=== PATIENT | female | born 1980 | race Caucasian/White ===

== ENCOUNTER 2017-10-14 08:12 | Inpatient (IN) | payer BC, OTHER ==
[~2017-10-14] VITALS: Ht 172.7 cm; Wt 95.3 kg
[2017-10-14] MEDS ORDERED: MIRALAX 17 GM POWD.PACK PO PRN (12:45)
[2017-10-14] MEDS ORDERED: LOPERAMIDE HCL 2 MG CAPSULE PO PRN ×2 (12:45)
[2017-10-14] MEDS ORDERED: MAGNESIUM HYDROXIDE 30 ML LIQUID UDC PO PRN (12:45)
[2017-10-14] MEDS ORDERED: ACETAMINOPHEN 325 MG TABLET PO PRN (12:45)
[2017-10-14] MEDS ORDERED: DIAZEPAM 5 MG TABLET PO PRN (12:45)
[2017-10-14] MEDS ORDERED: ONDANSETRON ODT 4 MG TAB.RAPDIS SL PRN (12:45)
[2017-10-14] MEDS ORDERED: DICYCLOMINE HCL 20 MG TABLET PO PRN (12:45)
[2017-10-14] MEDS ORDERED: LORAZEPAM 2 MG/1 ML VIAL IM PRN (12:45)
[2017-10-14] MEDS ORDERED: DIAZEPAM 10 MG TABLET PO PRN ×2 (12:45)
[2017-10-14] MEDS ORDERED: ONDANSETRON 4 MG/2 ML VIAL IM PRN (12:45)
[2017-10-14] MEDS ORDERED: MAG HYDROX/AL HYDROX/SIMETH 30 ML LIQUID UDC PO PRN (12:45)
[2017-10-14] MEDS ORDERED: diphenhydrAMINE 50 MG CAPSULE PO PRN (12:45)
[2017-10-14] MEDS ORDERED: BUPRENORPHINE HCL 2 MG TAB.SUBL SL PRN (12:45)
--- NOTE | 2017-10-14 13:00 | NUR ---
Pre Admission Note Pt A&Ox4 able to communicate without any difficulty vitals taken all WNL, pt is not intoxicated and stated she has not been using for the past couple of days, pt is being admitted due to opiate and Barbiturates withdrawals, Pt is stable enough to be admitted on the unit.
[2017-10-14] MEDS ORDERED: CITA20TA19 PO (13:01)
[2017-10-14] MEDS ORDERED: LAMO200T2 PO (13:01)
[2017-10-14] MEDS ORDERED: ARMOUR THYROID PO (13:01)
[2017-10-14] MEDS ORDERED: LEVO25TA9 PO (13:01)
[2017-10-14] MEDS ORDERED: DULO60CA45 PO (13:01)
[2017-10-14] MEDS ORDERED: OMEP40CA37 PO (13:01)
[2017-10-14] MEDS ORDERED: MIRT30TA PO (13:01)
[2017-10-14] MEDS ORDERED: vitamin D2 PO (13:01)
[2017-10-14 13:22] LABS: *URINE HCG, QUAL NEGATIVE (NEGATIVE)
[2017-10-14 13:31] LABS: *AMPHETAMINE, URINE NEGATIVE (NEGATIVE); *BARBITURATE, URINE POSITIVE (NEGATIVE); *CANNABINOID, URINE NEGATIVE (NEGATIVE); *COCCAINE, URINE NEGATIVE (NEGATIVE); *OPIATE, URINE NEGATIVE (NEGATIVE); *PHENCYCLIDINE SCREEN,URINE NEGATIVE (NEGATIVE)
[2017-10-14] MEDS: BUPRENORPHINE HCL 2 MG TAB.SUBL SL SCH ×3 (13:40→20:19)
[2017-10-14] MEDS: PHENOBARBITAL 60 MG TABLET PO SCH ×3 (13:40→20:18)
--- NOTE | 2017-10-14 14:00 | NUR ---
INITIAL SCORES CIWA: 17 COWS:17
--- NOTE | 2017-10-14 14:00 | NUR ---
Admission Note: Pt is a 37 year old F, admitted to [facility] at 1320 for TANIKA. and OPIATE withdrawal. Pt shows no signs or symptoms of intoxication and is experiencing moderate withdrawal symptoms. Pt appears disheveled and anxious unable to sit in one spot, constantly moving, biting fingernails during assessment. Pt is soft-spoken and has a depressed mood. Pt is AOx4. Pt states her withdrawal symptoms include paranoia, anxiety, agitation, sweats, tremors, nausea, and depressed mood. Pt denies Hx of withdrawal-induced seizures. Is able to communicate without difficulties. Substance use history: 1.Hydrocodone 10/325mg tab: Pt states that she takes 35 tabs (350mg) daily for the past 6 years, she first began to take them 8 years ago. Pts last consumption was on 10/12/17 she states she took 25 tabs (250mg) 2.Fioricet 50mg pill: : Pt states that she takes 20 pills (1,000mg) daily for the past 4 years, she first began to take them 4 years ago. Pts last consumption was on 10/11/17 she states she took 20 pills (1,000mg) Pt states she is seeking treatment because she is trying to get her life back on track and take control of her life. Pt has not been to any other treatment centers prior to this so this will be her first detox. Pts longest period of sobriety was 3 years which was from 2002 to 2005. Pt states she is motivated and is ready to change her life. BP: 137/78, HR:87, T: 98.5, RR: 18, SpO2: 98%, Pain: 0/10. Pulse regular. Respirations even and unlabored. Lung sounds clear bilaterally. Bowel sounds active x4 quadrants. Skin intact, but she does have pick wharton on both of her legs, no infection suspected, pt stated she starts to pick at her skin when she begins to start withdrawing. Pt is 210lbs, and 58. Pt follows regular diet at home. She states that she is allergic to Septra, Sulfa, Doxycycline, Topamax, codeine, and tetanus. Pt states she has a primary care physician by the name of Dr. Salazar. Pt reports having medical HX: of Depression, Anxiety, RLS, GERD, Bipolar disorder, and Fibromyalgia. Pt brought home medications which were reconciled and placed in the system. Pt also reported having surgical procedures for her thyroid and gallbladder. Pt states she smokes socially and only when she drinks, other than that I dont like to smoke at all. Pt denies any suicidal Homicidal ideations at this time. Pt states she lives with her family in a mobile home. She is not currently employed. She reports that the majority of her family are addicted to drugs, it would be easier to name the family members who dont use drugs. All information given to MD, Plan of care made pt placed on a 5 day Phenobarbital and 5 day Subutex Taper to start today. All admission forms completed, patient education given to patient and signed. Pt oriented around the unit, taken to her room, Bed in lowest position. Side rails up x2. Bed padded for safety. All needs attended and met. Call light functioning and within reach. Will continue to monitor.
[2017-10-14] MEDS ORDERED: PATIENT MAY USE OWN MED- MD OK PO SCH (15:00)
[2017-10-14 16:00] VITALS: BP 129/88
[2017-10-14] MEDS: GABAPENTIN 400 MG CAPSULE PO SCH ×2 (16:23→20:18)
[2017-10-14 17:21] LABS: EOSINOPHILS # (AUTO) 0.1 K/uL (0.0-0.7); HEMATOCRIT 34.1 % (31.2-41.9); HEMOGLOBIN 11.2 g/dL (10.9-14.3); LYMPHOCYTES # (AUTO) 1.4 K/uL (20.0-40.0); LYMPHOCYTES % (AUTO) 29.9 % (20.5-51.5); MEAN CORPUSCULAR HGB CONC 33 g/dL (32.3-35.6); MEAN CORPUSCULAR VOLUME 85.4 fL (75.5-95.3); MONOCYTES # (AUTO) 0.3 K/uL (2.0-10.0); MONOCYTES % (AUTO) 5.8 % (0.0-11.0); NEUTROPHILS # (AUTO) 2.9 K/uL (1.8-8.9); NEUTROPHILS % (AUTO) 61.3 % (38.5-71.5); PLATELET COUNT (AUTO) 178 K/uL (179-408); WHITE BLOOD COUNT (AUTO) 4.8 K/uL (3.8-11.8)
[2017-10-14 17:38] LABS: ETHANOL < 3 MG/DL (0-0)
[2017-10-14 17:41] LABS: ALANINE AMINOTRANSFERASE 49 U/L (14-59); ALKALINE PHOSPHATASE 79 U/L (50-136); ASPARTATE AMINOTRANSFERASE 14 U/L (15-37); BILIRUBIN,TOTAL 0.2 mg/dL (0.2-1.0); CARBON DIOXIDE 28 mmol/L (21-32); CHLORIDE 102 mmol/L (98-107); CREATININE 0.7 mg/dL (0.6-1.3); GLUCOSE 138 mg/dL (74-106); MAGNESIUM 1.8 mg/dL (1.8-2.4); POTASSIUM 3.9 mmol/L (3.5-5.1); TOTAL PROTEIN, SERUM 7.3 g/dL (6.4-8.2); UREA NITROGEN, BLOOD 8 mg/dL (7-18)
[2017-10-14 18:16] LABS: THYROID STIMULATING HORMONE 1.595 mIU/mL (0.358-3.740)
--- NOTE | 2017-10-14 19:16 | NUR ---
End of Shift Report given to slot shift supervisor nurse, Plan of care followed, Vital signs monitored closely Q4H. Withdrawals symptoms were closely monitored, medications given as schedule. Initial CIWA 17 COWS 17. Pt encouraged adequate PO fluid intake as tolerated. Pt presented with sweats flushed face hallucinations anxiety and tremors during the day. Pt received all of the scheduled medications Pt did not receive any PRN medications. Last CIWA 14 COWS 14. Pt reported that the phenobarb and Subutex have been working well at controlling the withdrawal symptoms. Pt ate all of the meals. Pt attended all the groups and activities to learn new coping skills to prevent relapse. Pt denies any SI/HI. All safety measures in place, bed in lowest locked position, call light within reach. All needs met and attended.
--- NOTE | 2017-10-14 19:30 | NUR ---
START OF SHIFT Received 37 year old female patient admitted on 10/14/17 for Hydrocodone and Fioricet withdrawal. Pt is alert and oriented x4. Pt noted with anxiety, restlessness, irritability, body aches, mild nausea, and sweats. She is receiving a 5 day Phenobarbital taper and tolerating well. She did not receive or request PRN medications. Breathing is even and unlabored, safety measures in place. Will continue to monitor.
[2017-10-14 20:00] VITALS: BP 123/91
[2017-10-14 23:35] VITALS: BP 110/81
[2017-10-14] MEDS: IBUPROFEN 600 MG TABLET PO PRN (23:36)
--- NOTE | 2017-10-14 23:36 | NUR ---
PRN VALIUM, IBUPROFEN Pt complains of restlessness, anxiety, agitation, and headache 11/03. PRN Ibuprofen and Valium 10 mg administered for CIWA:15. Safety measures in place. Will monitor effectiveness.
--- NOTE | 2017-10-15 00:36 | NUR ---
PRN REASSESSMENT PRN medications effective. Pt is lying in bed with eyes closed and is asleep. No facial grimacing noted. Breathing is even and unlabored, safety measures in place. Will continue to monitor.
[2017-10-15] MEDS: METHOCARBAMOL 750 MG TABLET PO PRN ×2 (02:35→20:51)
--- NOTE | 2017-10-15 02:35 | NUR ---
PRN SUBUTEX/ROBAXIN Pt complains of body aches, agitation, restless legs, stuffy nose, watery eyes, chills and sweats. COWS: 14. PRN Robaxin and Subutex administered as ordered. Safety measures in place. Will continue to monitor effectiveness.
--- NOTE | 2017-10-15 03:35 | NUR ---
PRN SUBUTEX/ROBAXIN REASSESSMENT PRN medications effective. Pt is lying in bed with eyes closed noted to be asleep. No facial grimacing. Breathing is even and unlabored, safety measures in place. Will monitor.
[2017-10-15 04:00] VITALS: BP 115/85
[2017-10-15] MEDS: LEVOTHYROXINE 25MCG PO SCH (07:05)
--- NOTE | 2017-10-15 07:17 | NUR ---
END OF SHIFT Pt is a 37 year old female patient admitted on 10/14/17 for Hydrocodone and Fioricet withdrawal. He remains alert and oriented x4. Pt was noted with anxiety, restlessness, irritability, body aches, mild nausea, chills and sweats during the shift. She is receiving a 4 day Phenobarbital and 4 day Subutex taper and tolerating well. At 2336 she received PRN Valium and Ibuprofen. At 0235 she received PRN Subutex and Robaxin. She slept a total of 3 hrs, Intake: 1,000mL, Void: x3, BM:0, COWS:14, CIWA:14 at 0230. Breathing is even and unlabored, safety measures in place. Endorsed to AM shift.
--- NOTE | 2017-10-15 07:37 | NUR ---
BEGINNING OF SHIFT Patient endorsement report received from manager shift nurse, all pertinent information discussed. Patient is a 37 year old Female with admitting Dx: Opiate/Barbiturate withdrawal. Patient is scheduled to begin day 1 of 4 day phenobarbital taper, and day one of 4 day Subutex taper. Patient received PRN:Valium, Motrin, Subutex and Robaxin. , per manager shift medications were effective. patient slept for 3 hours. fall and seizure precautions in place and observed at all times. Patient received in bed with eyes closed, respirations are even and unlabored, patient sound asleep, but arousable to verbal stimuli. Will educate patient regarding plan of care for the day, and medication regimen, Patient with last ciwa score of 14, and last cow score of: 14. will continue to monitor closely. safety measures in place.
[2017-10-15 08:55] VITALS: BP 107/69
[2017-10-15] MEDS ORDERED: ERGOCALCIFEROL 50000 UNIT PO SCH (09:00)
[2017-10-15] MEDS ORDERED: TUBERCULIN,PURIF.PROT.DERIV. 5 TU/0.1 ML TEST ID ONE (09:00)
[2017-10-15] MEDS: GABAPENTIN 400 MG CAPSULE PO SCH ×3 (09:16→20:51)
[2017-10-15] MEDS: BUPRENORPHINE HCL 2 MG TAB.SUBL SL SCH ×3 (09:16→20:51)
[2017-10-15] MEDS: PHENOBARBITAL 60 MG TABLET PO SCH ×3 (09:16→20:51)
[2017-10-15] MEDS: DULOXETINE 60 MG CAPSULE.DR PO SCH (13:22)
[2017-10-15] MEDS: CITALOPRAM 20 MG TABLET PO SCH (13:22)
[2017-10-15 13:32] VITALS: BP 114/78
--- NOTE | 2017-10-15 15:42 | NUR ---
Client was prompted to attend group counseling sessions and client agreed to do so.
[2017-10-15 16:50] VITALS: BP 112/77
--- NOTE | 2017-10-15 19:03 | NUR ---
END OF SHIFT Patient monitored closely during shift. Patient alert and oriented x4. Admitting Dx: Opiate/BZO withdrawal. Patient continues on 4 day Phenobarbital taper and 4 day Subutex taper as ordered, well tolerated, patient currently on day 1 of taper. Patient presented with: difficulty sitting still, flushed, enlarged pupils, bone and joint aches, nasal congestion, abdominal cramps, tremors, yawning, anxiety, irritability, gooseflesh, itchiness sensation and head fullness. Initial cow score of: 16 and ciwa score of: 20. Patient with last cow score of: 15, and ciwa score of: 15. Detox medication effective at reducing withdrawal symptoms. Dr. montes was notified of ciwa scores at or above 15. Patient received no PRN medications during shift. Patient received PPD to left F/A well tolerated. Patient noted disheveled, has a flat affect with anxious and depressed mood. Patient encouraged participation in therapy sessions, noted attending and participating. patient denies any SI/HI, Patient was encouraged to verbalize feelings, encouraged to develop coping skills and utilization of non pharmacological interventions. Encouraged patient to increase PO fluid intake as tolerated. Patients safety measures are in place. call light kept within reach, will continue to monitor. Endorsed to staff nurse, all pertinent information discussed.
--- NOTE | 2017-10-15 19:15 | NUR ---
Start of Shift Note: Patient is a 37 y.o female admitted on 10/14/17 for medically supervised withdrawal from Fioricet and Hydrocodone use. She is alert & oriented x4. Patient presented with anxiety, agitation, diaphoresis, fine tremors, runny nose, teary eyes, 8/10 back pain & 5/10 headache. She denies any hallucinations. Patient is on 5-day Phenobarbital & 5-day Subutex taper and tolerating well. No PRN medications received during day shift. Last COWS 15 CIWA 15. Encourage pt to increase fluid intake for hydration. Continue to encourage pt to participate in group therapy to prevent relapse. Educated patient of current plan of care for the night and medication regimen. Safety precaution in place. Bed locked in lowest position. Both side rails up. Call light within pt's reach. Will continue to monitor patient.
[2017-10-15 20:00] VITALS: BP 115/70
[2017-10-15] MEDS: LAMOTRIGINE 200 MG TABLET PO SCH (20:51)
[2017-10-15] MEDS: IBUPROFEN 600 MG TABLET PO PRN (20:51)
[2017-10-15] MEDS: CLONIDINE HCL 0.1 MG TABLET PO SCH (20:51)
--- NOTE | 2017-10-15 20:51 | NUR ---
PRN Motrin & Robaxin Patient complained of 8/10 generalized body aches and 5/10 headache. Pt appears restless & anxious in bed with facial grimacing noted. Non-pharmacological intervention provided but ineffective. PRN Robaxin & Motrin administered as ordered. Will continue to monitor patient.
--- NOTE | 2017-10-15 21:51 | NUR ---
PRN Reassessment Patient verbalized effectiveness of medication. Pt reported decreased in body aches from 8/10 to 5/10. & reports relief from headache after 1 hour of medication administration. safety measures in place. Will continue to monitor patient.
[2017-10-16 04:00] VITALS: BP 112/68
[2017-10-16] MEDS: METHOCARBAMOL 750 MG TABLET PO PRN ×3 (04:58→20:06)
[2017-10-16] MEDS: CLONIDINE HCL 0.1 MG TABLET PO PRN ×2 (04:58→22:31)
--- NOTE | 2017-10-16 04:58 | NUR ---
PRN Clonidine & Robaxin Patient woke up in bed and complained of diaphoresis, chills, & 6/10 shoulder and neck pain. B/P 112/68, MD 75 noted. PRN Clonidine & Robaxin administered as ordered. Will monitor for effectiveness of medications.
--- NOTE | 2017-10-16 05:58 | NUR ---
PRN Reassessment Patient verbalized decreased in sweating & chills & some relief body aches from 10/04 to 08/04. Patient awake at this time and watching TV. No facial grimacing noted. Safety precautions are in place. Will continue to monitor.
[2017-10-16] MEDS: LEVOTHYROXINE 25MCG PO SCH (06:46)
--- NOTE | 2017-10-16 07:19 | NUR ---
End of Shift Note: Patient is a 37 y.o female admitted on 10/14/17 for medically supervised withdrawal from Fioricet and Hydrocodone use. Pt remains alert & oriented x4. She remained in her room throughout the shift. She presented with anxiety, agitation, fine tremors, runny nose, teary eyes, back pain, headache & she is visibly diaphoretic. She denies any hallucinations. Pt continues on her Phenobarbital & Subutex taper and tolerating well. Last COWS 11 CIWA 11. She received PRN Robaxin 2x for body aches, Motrin for headache & Clonidine for sweating & chills and were effective. Continue to closely monitor patient. Vitals noted WNL and will be closely monitored. She was able to sleep for a total of 7 hours. Fluid intake: 1220 ml, Voided 3x with no bowel movement. Continue to encourage pt to participate in group therapy and to increase fluid intake as tolerated. All needs attended & met. Safety measures in place. Will endorse pt to day shift nurse.
--- NOTE | 2017-10-16 07:31 | NUR ---
BEGINNING OF SHIFT Patient endorsement report received from punch molder nurse, all pertinent information discussed. Patient is a 37 year old Female with admitting Dx: Opiate/Barbiturate withdrawal. Patient is scheduled to begin day 2 of 4 day phenobarbital taper, and day 2 of 4 day Subutex taper. Patient received PRN:Robaxin,Motrin, Clonidine, per punch molder medications were effective. patient slept for 7 hours. fall and seizure precautions in place and observed at all times. Patient received in bed with eyes closed, respirations are even and unlabored, patient sound asleep, but arousable to verbal stimuli. Will educate patient regarding plan of care for the day, and medication regimen, Patient with last ciwa score of 11, and last cow score of: 11. will continue to monitor closely. safety measures in place.
[2017-10-16 07:46] LABS: BASOPHILS % (AUTO) 1.1 % (0.0-2.0); EOSINOPHILS # (AUTO) 0.1 K/uL (0.0-0.7); EOSINOPHILS % (AUTO) 1.7 % (0.0-7.0); HEMATOCRIT 35.5 % (31.2-41.9); HEMOGLOBIN 11.8 g/dL (10.9-14.3); LYMPHOCYTES # (AUTO) 2.1 K/uL (20.0-40.0); LYMPHOCYTES % (AUTO) 47.4 % (20.5-51.5); MEAN CORPUSCULAR HEMOGLOBIN 28.6 uug (24.7-32.8); MEAN CORPUSCULAR HGB CONC 33 g/dL (32.3-35.6); MEAN CORPUSCULAR VOLUME 85.9 fL (75.5-95.3); MONOCYTES # (AUTO) 0.3 K/uL (2.0-10.0); MONOCYTES % (AUTO) 7.1 % (0.0-11.0); NEUTROPHILS # (AUTO) 1.9 K/uL (1.8-8.9); NEUTROPHILS % (AUTO) 42.7 % (38.5-71.5); PLATELET COUNT (AUTO) 187 K/uL (179-408); RED BLOOD CELL COUNT(AUTO) 4.13 MIL/uL (3.63-4.92); WHITE BLOOD COUNT (AUTO) 4.5 K/uL (3.8-11.8)
[2017-10-16 08:15] LABS: CREATININE 0.7 mg/dL (0.6-1.3); MAGNESIUM 1.8 mg/dL (1.8-2.4)
[2017-10-16 08:42] VITALS: BP 115/82
[2017-10-16] MEDS: CLONIDINE HCL 0.1 MG TABLET PO SCH (08:49)
[2017-10-16] MEDS: DULOXETINE 60 MG CAPSULE.DR PO SCH (08:49)
[2017-10-16] MEDS: GABAPENTIN 400 MG CAPSULE PO SCH ×3 (08:49→20:07)
[2017-10-16] MEDS: CITALOPRAM 20 MG TABLET PO SCH (08:50)
[2017-10-16] MEDS: PHENOBARBITAL 60 MG TABLET PO SCH ×2 (08:50→12:47)
--- NOTE | 2017-10-16 08:50 | NUR ---
PRN ROBAXIN Patient c/o muscle aches 10/04, provided with non pharmacological interventions with no relief, administered Robaxin as ordered, will monitor effectiveness of medication.
[2017-10-16] MEDS ORDERED: BUPRENORPHINE HCL 2 MG TAB.SUBL SL SCH (09:00)
--- NOTE | 2017-10-16 09:50 | NUR ---
ROBAXIN REASSESSMENT Patient reports medication effective decrease in muscle aches. current pain level 3/10, tolerable as per patient, will continue to monitor.
[2017-10-16 12:11] LABS: HEPATITIS B SURFACE AG Negative (Negative)
[2017-10-16 12:45] VITALS: BP 102/60
[2017-10-16] MEDS: LIDOCAINE 5% PATCH TD SCH (12:51)
[2017-10-16] MEDS ORDERED: BACLOFEN 10 MG TABLET PO SCH ×2 (13:00→21:00)
[2017-10-16] MEDS: BUPRENORPHINE HCL 2 MG TAB.SUBL SL SCH ×2 (14:06→20:06)
[2017-10-16 16:51] VITALS: BP 112/68
[2017-10-16] MEDS ORDERED: PHENOBARBITAL 60 MG TABLET PO SCH ×2 (17:00→21:00)
[2017-10-16] MEDS: KETOROLAC TROMETHAMINE 30 MG INJ IM PRN (17:34)
--- NOTE | 2017-10-16 18:34 | NUR ---
TORADOL REASSESSMENT Patient reports medication effective, current pain level 3/10, tolerable pain level as per patient will continue to monitor.
--- NOTE | 2017-10-16 19:07 | NUR ---
END OF SHIFT Patient with admitting Dx: Opiate/BZO withdrawal. Patient noted with depressed mood, flat affect, disheveled, and anxious at times. Monitored closely during shift. Patient alert and oriented x4, during shift. Patient continues on a four day Phenobarbital and four day Subutex taper as ordered, currently on day 2 of taper. Patient preferred to stay in room, and rest, encouraged patient to attend group therapies/sessions to learn new coping skills to prevent relapse. During shift patient presented with: difficulty sitting still, bone and joint aches, tremors, flushed, clammy skin, abdominal cramps, yawning, anxiety, gooseflesh. Initial cow score of: 17, and ciwa score of: 14, last cow score of: 16 and ciwa score of: 14. Encouraged adequate PO fluid intake as tolerated. Received PRN: Robaxin, and toradol inj during shift , medications were effective one hour post administration. Safety measures are in place. Call light kept with in reach. Patient endorsed to retail shift leader nurse, all pertinent information was discussed.
--- NOTE | 2017-10-16 19:08 | NUR ---
PRN TORADOL Patient c/o 12/04 generalized body pain, noted guarding and with facial grimacing. patient provided with non pharmacological interventions with no relief, administered Toradol injection as ordered. will monitor effectiveness of medication. Addendum: 10/16/17 at 1909 by GAUDENCIO EMERSON LVN medication administered at 1734
--- NOTE | 2017-10-16 19:15 | NUR ---
Start of Shift Note: Endorsement received from day shift nurse. Receive patient in bed and appears with a flushed face, anxious and irritable mood. She presented with anxiety, agitation, restlessness, diaphoresis, chills, fine tremors, runny nose, teary eyes & reports 7/10 body aches. She denies any hallucinations at this time. Patient continues on a 5-day Phenobarbital & 5-day Subutex taper and tolerating well. Pt received PRN Toradol & Robaxin during day shift and was effective per report. Last COWS 16 CIWA 14. Encourage pt to increase fluid intake for hydration. Pt attended some groups today. Willcontinue to encourage pt to participate in group therapy to prevent relapse. Educated patient of current plan of care for the night and medication regimen. Safety precaution in place. Bed locked in lowest position. Both side rails up. Call light within pt's reach. Will continue to monitor patient.
[2017-10-16 20:00] VITALS: BP 117/68
--- NOTE | 2017-10-16 20:06 | NUR ---
PRN Robaxin Patient complained of 6/ generalized body aches & anxiety. Patient appears restless and anxious in bed. PRN Robaxin administered as ordered. Will continue to monitor patient. Addendum: 10/16/17 at 2035 by NAYA DAWSON RN Addendum: Pt also given PRN Vistaril for anxiety at this time. Safety measures in place.
[2017-10-16] MEDS: LAMOTRIGINE 200 MG TABLET PO SCH (20:07)
[2017-10-16] MEDS: HYDROXYZINE PAMOATE 25 MG CAPSULE PO PRN (20:07)
[2017-10-16] MEDS ORDERED: CLONIDINE HCL 0.1 MG TABLET PO SCH (21:00)
--- NOTE | 2017-10-16 21:06 | NUR ---
PRN Reassessment Pt verbalized some relief from body aches 1 hour of medication administration. Pt noted with a pain of 4/10 at this time. Pt in bed watching TV. Safety measures in place. Will continue to monitor patient.
[2017-10-16] MEDS: MIRTAZAPINE 15 MG TABLET PO PRN (22:26)
[2017-10-16 22:30] VITALS: BP 116/91
--- NOTE | 2017-10-16 22:31 | NUR ---
PRN Clonidine & Remeron Patient c/o of inability to fall sleep d/t complaints of diaphoresis, chills & anxiety. B/P 116/91, WI 101 noted at this time. PRN Clonidine & Remeron administered as ordered. Will monitor for effectiveness of medication.
--- NOTE | 2017-10-16 23:31 | NUR ---
PRN Reassessment Pt asleep in bed at this time. Pt appears calm & comfortable. No facial grimacing noted. Safety measures in place. Will continue to monitor patient.
[2017-10-17] MEDS: THYROID 60 MG TABLET PO SCH (06:48)
[2017-10-17] MEDS: LEVOTHYROXINE 25MCG PO SCH (06:48)
[2017-10-17 07:06] LABS: VIT D, 25-HYDROXY 18.8 ng/mL (30.0-100.0)
--- NOTE | 2017-10-17 07:22 | NUR ---
End of Shift Note: Continue to closely monitor patient. She remains alert & oriented x4. During my shift, she presented with anxiety, agitation, restlessness, diaphoresis, chills, fine tremors, runny nose, teary eyes & myalgia. Pt continues on her Subutex & Phenobarbital taper and tolerating well. Last COWS 11 CIWA 11. She received PRN Robaxin for pain, Vistaril for anxiety, Clonidine for sweating & chills & Remeron for sleep and were effective. Pt verbalized taper medications to be effective in decreasing symptoms of withdrawal. Pt stable at this time and vitals noted WNL. Continue to encourage pt to participate in group therapy to learn new coping skills and to prevent relapse. She was able to sleep for a total of 7 hours. Fluid intake: 1065 ml, Voided 3x with no bowel movement. All needs attended & met. Safety measures in place. Will endorse pt to day shift nurse.
--- NOTE | 2017-10-17 07:30 | NUR ---
START OF SHIFT Pt 37 y/o female admitted for opiate/ benzo withdrawal. Pt received in room on bed with eyes closed resting, but easily arousable to name. Perrla. Skin warm and moist to touch. Respirations even and unlabored. Bilateral hand tremors noted. Pt anxious and restless this morning. Pressured speech noted. Pt with poor eye contact. Pt appears disheveled with hair uncombed. Empty drink bottles scattered throughout the room. Encouraged to maintain hygiene. It was reported that pt slept for 7 hours last night. Last reported cows=11 ciwa=11@2300. pt is on a 5 day phenobarbital taper and is on day 4. Pt also on a 5 day subutex taper and is on day 4. it was reported that pt received robaxin for body aches and catapres for anxiety last night. Bed on lowest position with side rails x 2 up for safety. Call light within reach.
[2017-10-17 08:00] VITALS: BP 111/71
[2017-10-17 08:06] LABS: *ANTI-SCLERODERMA-70 AB <0.2 AI (0.0-0.9); *SJOGREN'S ANTI-SS-A <0.2 AI (0.0-0.9); *SJOGREN'S ANTI-SS-B <0.2 AI (0.0-0.9); *SMITH ANTIBODIES <0.2 AI (0.0-0.9); ANTI-DNA(DS) AB, QN 1 IU/mL (0-9)
[2017-10-17] MEDS ORDERED: DIAZEPAM 10 MG TABLET PO PRN (08:45)
[2017-10-17] MEDS ORDERED: DIAZEPAM 5 MG TABLET PO PRN (08:45)
[2017-10-17] MEDS ORDERED: ASPIRIN/ACETAMINOPHEN/CAFFEINE TABLET PO PRN (08:45)
[2017-10-17] MEDS: BUPRENORPHINE HCL 2 MG TAB.SUBL SL SCH ×3 (08:58→20:15)
[2017-10-17] MEDS: GABAPENTIN 400 MG CAPSULE PO SCH ×3 (08:58→20:15)
[2017-10-17] MEDS: PHENOBARBITAL 60 MG TABLET PO SCH ×3 (08:59→20:15)
[2017-10-17] MEDS: DULOXETINE 60 MG CAPSULE.DR PO SCH (08:59)
[2017-10-17] MEDS: METHOCARBAMOL 750 MG TABLET PO PRN (08:59)
[2017-10-17] MEDS: CLONIDINE HCL 0.1 MG TABLET PO SCH ×2 (08:59→14:07)
[2017-10-17] MEDS: BACLOFEN 10 MG TABLET PO SCH ×3 (08:59→20:16)
[2017-10-17] MEDS: CITALOPRAM 20 MG TABLET PO SCH (08:59)
[2017-10-17] MEDS ORDERED: CHOLECALCIFEROL 1,000 UNIT TABLET PO SCH (09:00)
[2017-10-17] MEDS: LIDOCAINE 5% PATCH TD SCH (09:00)
--- NOTE | 2017-10-17 09:09 | NUR ---
PRN ROBAXIN / TYLENOL pt state has generalized body pain 7/10. Pt irritable, observed with adls. Pt also with c/o body aches 7/10. Robaxin and tylenol po prn prer MD order given and tolerated well.
--- NOTE | 2017-10-17 10:09 | NUR ---
PRN EVAL ROBAXIN / TYLENOL Pt states generalized body pain 3/10. Pt also states body aches 3/10.
[2017-10-17 12:00] VITALS: BP 127/77
[2017-10-17] MEDS: DIAZEPAM 10 MG TABLET PO PRN ×2 (12:22→19:29)
[2017-10-17] MEDS: KETOROLAC TROMETHAMINE 30 MG INJ IM PRN ×2 (12:25→20:16)
--- NOTE | 2017-10-17 12:29 | NUR ---
PRN TORADOL AND VALIUM Pt restless and agitated. Pt with bilateral hand tremors noted. Valium 10 mg po prn per MD order given and tolerated well. Pt also with c/o body pain 11/03. toradol IM prn per MD order given and tolerated well. Addendum: 10/17/17 at 1543 by JULIA TAM RN additional ciwa=11
--- NOTE | 2017-10-17 13:29 | NUR ---
PRN VALIUM/TORADOL EVAL Pt with ciwa=7. Pt observed sitting on chair in room watching television. Pt states pain 4/10.
[2017-10-17 14:38] LABS: *BILIRUBIN,URIN NEGATIVE (NEGATIVE); *BLOOD, URINE NEGATIVE (NEGATIVE); *CLARITY,URINE SLIGHTLY CLOUDY (CLEAR); *COLOR,URINE YELLOW (YELLOW); *KETONES,URINE NEGATIVE (NEGATIVE); *PROTEIN,URINE NEGATIVE (NEGATIVE); *UROBILINOGEN,URINE 0.2 E.U./dl (NORMAL); LEUKOCYTE ESTERASE ,URINE NEGATIVE (NEGATIVE); NITRITE, URINE NEGATIVE (NEGATIVE); PH,URINE 5.5 (5.0-8.0); UGLUCOSE NEGATIVE (NEGATIVE)
[2017-10-17 14:57] LABS: BACTERIA,URINE NONE SEEN /HPF (NONE SEEN); RBC,URINE 0-3 /HPF (0-3); SQUAMOUS EPITHELIAL CELL,UR FEW /HPF (NONE SEEN); WBC,URINE 0-3 /HPF (0-3)
[2017-10-17 16:00] VITALS: BP 119/76
--- NOTE | 2017-10-17 18:49 | NUR ---
END OF SHIFT Pt 37 y/o female admitted for opiate/ benzo withdrawal. Pt alert and oriented to name, place, and time. Perrla. Skin warm and moist to touch. Respirations even and unlabored. Bilateral hand tremors noted. Pt appear disheveled. Clothes and empty drink bottles scattered throughout the room. Encouraged to maintain hygiene. Pt with periods of anxiety this morning. Pt also with periods of irritability this morning. Pt observed mostly in room today. Pt attended group activity. Pt was seen by MD today. Pt medication compliant and tolerated well. No ASE noted. Pt is on a 5 day subutex taper and is on day 4. Pt also on a 5 day Phenobarbital taper and is on day 4. Pt received valium prn per MD order was given for ciwa=11. Pt also received toradol im prn per MD order for c/o pain. Last cows=11 ciwa=10@1600. Bed on lowest position with side rails x2 up for safety. Call light within reach.
--- NOTE | 2017-10-17 19:15 | NUR ---
Start of Shift Note: Endorsement received from day shift nurse. Receive patient in bed and appears with a flushed face, diaphoretic, anxious and irritable. She c/o of 8/10 myalgia & 5/10 headache at this time. She continues to have fine tremors, stuffy nose & chills. She denies any hallucinations at this time. Patient continues on a 5-day Phenobarbital & 5-day Subutex taper and tolerating well. Pt received PRN Valium, Toradol, Tylenol & Robaxin during day shift and was effective per report. Last CIWA 10. Encourage pt to increase fluid intake for hydration. Educated patient of current plan of care for the night and medication regimen. Safety precaution in place. Bed locked in lowest position. Both side rails up. Call light within pt's reach. Will continue to monitor patient.
--- NOTE | 2017-10-17 19:29 | NUR ---
PRN Valium/Toradol Patient presents with anxiety, agitation, fine tremors, sweating, 8/10 generalized body aches and moderate headache. CIWA=15 noted. PRN Valium & Toradol administered as ordered. Will monitor for effectiveness of medication.
[2017-10-17 20:00] VITALS: BP 116/81
[2017-10-17] MEDS: LAMOTRIGINE 200 MG TABLET PO SCH (20:15)
[2017-10-17] MEDS: CLONIDINE HCL 0.2 MG TABLET PO SCH (20:16)
--- NOTE | 2017-10-17 20:29 | NUR ---
PRN Reassessment PRN medication effective. Pt verbalized decreased in anxiety & agitation. Pt's pain decreased from 8/10 to 4/10 after 1 hour of medication administration. CIWA 10 at this time. SAfety measures in place. Will continue to monitor patient.
[2017-10-17] MEDS: CLONIDINE HCL 0.1 MG TABLET PO PRN (22:50)
[2017-10-17] MEDS: HYDROXYZINE PAMOATE 25 MG CAPSULE PO PRN (22:50)
--- NOTE | 2017-10-17 22:50 | NUR ---
PRN Clonidine & Vistaril Patient is diaphoretic, anxious, irritable & restless. B/P 98/65 noted. PRN Clonidine & Vistaril administered as ordered. Will monitor for effectiveness of medication.
--- NOTE | 2017-10-17 23:50 | NUR ---
PRN Reassessment Patient stil awake at this time. Pt verbalized medication to be somewhat effective. Decreased in sweating, anxiety & agitation noted at this time. Pt in bed and watching TV at this time. Safety measures in place. Will continue to monitor patient.
[2017-10-18] VITALS: BP 98/65
[2017-10-18] MEDS: DIAZEPAM 10 MG TABLET PO PRN (00:26)
--- NOTE | 2017-10-18 00:26 | NUR ---
PRN Valium Patient woke up drenched in sweat. She presents with anxiety, agitation, headache & fine tremors. CIWA 12 noted at this time. PRN Valium 10mg administered as ordered. Will monitor for effectiveness of medication.
--- NOTE | 2017-10-18 01:26 | NUR ---
PRN Reassessment Patient asleep in bed at this time and appears calm & comfortable. No facial grimacing noted. Unable to reassess CIWA at this time. Safety measures in place. will continue to monitor patient.
[2017-10-18] MEDS: LEVOTHYROXINE 25MCG PO SCH (06:46)
[2017-10-18] MEDS: THYROID 60 MG TABLET PO SCH (06:46)
--- NOTE | 2017-10-18 07:19 | NUR ---
End of Shift Note: Continue to closely monitor patient. She remains alert & oriented x4. Pt continues on her Subutex & Phenobarbital taper and tolerating well. Last COWS 11 CIWA 11. She received PRN Valium 2x for increased CIWA scores, Clonidine for sweating, Vistaril for anxiety & Toradol for pain. All PRN medications given were effective. Pt verbalized taper medications to be effective in decreasing symptoms of withdrawal. Pt stable at this time and vitals noted WNL. Continue to encourage pt to participate in group therapy to learn new coping skills and to prevent relapse. She was able to sleep for a total of 5 hours. Fluid intake: 1210 ml, Voided 3x with no bowel movement. All needs attended & met. Safety measures in place. Will endorse pt to day shift nurse.
[2017-10-18 08:00] VITALS: BP 115/72
--- NOTE | 2017-10-18 08:00 | NUR ---
START OF SHIFT NOTE Received report from night nurse, patient admitted for opioid, Fioricet withdrawal, and continues with Phenobarbital and Subutex taper tolerating well. Per endorsement patient received PRN Valium, Toradol,Clonidine, Vistaril tolerated well, last CIWA -12, COWS-11, slept for 5 hours. Received patient anxious, agitated, restless, sad facial expression, empty bottles on the floor, bilateral hand tremors, body aches. Patient due for schedule medications. Educated patient regarding importance of attending group activities, patient verbalized understanding. All safety measures in place. Will cont to monitor.
[2017-10-18] MEDS: BACLOFEN 10 MG TABLET PO SCH (09:05)
[2017-10-18] MEDS: CITALOPRAM 20 MG TABLET PO SCH (09:05)
[2017-10-18] MEDS: GABAPENTIN 400 MG CAPSULE PO SCH (09:05)
[2017-10-18] MEDS: PHENOBARBITAL 60 MG TABLET PO SCH ×2 (09:05→20:23)
[2017-10-18] MEDS: DULOXETINE 60 MG CAPSULE.DR PO SCH (09:05)
[2017-10-18] MEDS: LIDOCAINE 5% PATCH TD SCH (09:06)
[2017-10-18] MEDS: CLONIDINE HCL 0.1 MG TABLET PO SCH ×2 (09:06→14:19)
[2017-10-18] MEDS: BUPRENORPHINE HCL 2 MG TAB.SUBL SL SCH ×2 (09:06→20:24)
[2017-10-18 12:00] VITALS: BP 98/70
[2017-10-18] MEDS ORDERED: METHYL SALICYLATE/MENTHOL CREAM 28 GM TUBE TOP PRN (12:00)
[2017-10-18] MEDS ORDERED: IBUPROFEN 800 MG TABLET PO PRN (12:00)
[2017-10-18] MEDS: KETOROLAC TROMETHAMINE 30 MG INJ IM PRN ×2 (12:21→22:01)
[2017-10-18] MEDS: HYDROXYZINE PAMOATE 25 MG CAPSULE PO PRN ×2 (12:24→22:00)
--- NOTE | 2017-10-18 12:24 | NUR ---
PRN TORADOL/VISTARIL Patient verbalized increased in anxiety and general body aches 12/04. PRN Toradol 30mg IM and Vistaril 50 mg PO given as ordered. Will cont to monitor and reassess.
--- NOTE | 2017-10-18 12:54 | NUR ---
TORADOL REASSESSMENT Per patient Toradol was effective in lowering body aches 2/10.
--- NOTE | 2017-10-18 13:54 | NUR ---
VISTARIL REASSESSMENT Per patient Vistaril was effective anxiety subsided.
[2017-10-18] MEDS: BACLOFEN 20 MG TABLET PO SCH ×2 (14:18→20:23)
[2017-10-18] MEDS: GABAPENTIN 300 MG CAPSULE PO SCH ×2 (14:18→20:23)
[2017-10-18 16:00] VITALS: BP 106/61
--- NOTE | 2017-10-18 19:10 | NUR ---
END OF SHIFT NOTE Gave report to night nurse, 37 year old female patient remains A/O x4. Pt continues on a 5 day Phenobarbital taper and 5 day Subutex taper and is tolerating well. Pt ambulates with a steady gait. Pt encouraged to attend groups and activities. Pt seen socializing with peers. Most recent COWS is 10 and CIWA is 11. During shift patient was given PRN Toradol and Vistaril noted to be effective. All pertinent information provided to night nurse. Pt is stable at this time, night nurse will continue to monitor.
--- NOTE | 2017-10-18 19:11 | NUR ---
Start of shift note Received report from day shift nurse. Pt is a 37 yo female, A+ox4, presenting to [facility] for Opiate/Barbiturate withdrawal. Pt noted to be agitated, anxious, and restless. Pt has HX of Fibromyalgia, Depression, GERD, and Bipolar disorder which will be monitored during shift. Pt is on 5 day Phenobarbital and 5 day Subutex tapers, tolerated well. Respirations even and unlabored. Will continue to monitor.
[2017-10-18 20:14] VITALS: BP 127/78
[2017-10-18] MEDS: LAMOTRIGINE 200 MG TABLET PO SCH (20:23)
[2017-10-18] MEDS: CLONIDINE HCL 0.2 MG TABLET PO SCH (20:39)
--- NOTE | 2017-10-18 22:01 | NUR ---
PRN Toradol and Vistaril Pt c/o neck/back pain 8/10 and anxiety and requested for PRN Toradol and Vistaril. Medications given and tolerated well. Will reassess within 1 HR. Will continue to monitor.
--- NOTE | 2017-10-18 22:48 | NUR ---
PRN Toradol and Vistaril Reassessment Medications effective. Pt expresses reduction in anxiety and reduction in neck/back pain to 6/10. No s/s of ASE noted at this time. Respirations even and unlabored. Will continue to monitor.
[2017-10-19 00:16] VITALS: BP 117/72
[2017-10-19] MEDS: MIRTAZAPINE 15 MG TABLET PO PRN ×2 (00:46→22:38)
--- NOTE | 2017-10-19 00:46 | NUR ---
PRN Remeron Pt c/o inability to sleep and requested for PRN Remeron. Medication given and tolerated well. Will reassess within 1 HR. Will continue to monitor.
--- NOTE | 2017-10-19 01:40 | NUR ---
PRN Remeron Reassessment Medication effective. Pt is resting well in bed. No s/s of ASE noted at this time. Respirations even and unlabored. Will continue to monitor.
[2017-10-19 04:25] VITALS: BP 114/74
--- NOTE | 2017-10-19 07:00 | NUR ---
End of shift note Pt was continuously noted with anxiety, agitation, sweats, restlessness, and insomnia. Pt remained in room for majority of shift except to get food from kitchen and to go smoke on smoking patio. Pt remained compliant and cooperative with all aspects of treatment. Pt was given PRN Toradol and Vistaril @2201 and PRN Remeron @0046. Pt is on 5 day Phenobarbital and 5 day Subutex tapers, tolerated well. Pt slept for a total of 8 HRS. Last COWS: 10 and Last CIWA: 10 @0400. Respirations even and unlabored. Will endorse to day shift nurse.
[2017-10-19] MEDS: THYROID 60 MG TABLET PO SCH (07:22)
[2017-10-19] MEDS: LEVOTHYROXINE 25MCG PO SCH (07:22)
--- NOTE | 2017-10-19 07:45 | NUR ---
START OF SHIFT NOTE Received report from night nurse, patient admitted for opioid, Fioricet withdrawal, and continues with Phenobarbital and Subutex taper tolerating well. Per endorsement patient received PRN Valium, Toradol, Remeron, Vistaril tolerated well, last CIWA -10, COWS-10, slept for 8 hours. Received patient anxious, agitated, restless, labile facial expression, bilateral hand tremors, body aches. Patient due for schedule medications. Educated patient regarding importance of attending group activities, patient verbalized understanding. All safety measures in place. Will cont to monitor.
[2017-10-19 08:00] VITALS: BP 125/85
[2017-10-19] MEDS: GABAPENTIN 300 MG CAPSULE PO SCH ×3 (08:22→20:47)
[2017-10-19] MEDS: CITALOPRAM 20 MG TABLET PO SCH (08:22)
[2017-10-19] MEDS: DULOXETINE 60 MG CAPSULE.DR PO SCH (08:22)
[2017-10-19] MEDS: CLONIDINE HCL 0.1 MG TABLET PO SCH ×2 (08:23→14:19)
[2017-10-19] MEDS: LIDOCAINE 5% PATCH TD SCH (08:23)
[2017-10-19] MEDS: BACLOFEN 20 MG TABLET PO SCH ×3 (08:23→20:47)
[2017-10-19] MEDS: PANTOPRAZOLE SODIUM 40 MG TABLET.DR PO SCH (08:51)
[2017-10-19] MEDS ORDERED: BUPRENORPHINE HCL 2 MG TAB.SUBL SL SCH (09:00)
[2017-10-19] MEDS ORDERED: PHENOBARBITAL 60 MG TABLET PO SCH (09:00)
[2017-10-19] MEDS: KETOROLAC TROMETHAMINE 30 MG INJ IM PRN (09:58)
--- NOTE | 2017-10-19 09:58 | NUR ---
PRN TORADOL Patient verbalized general body aches 12/04. PRN Toradol 30mg IM given as ordered. Will cont to monitor and reassess.
--- NOTE | 2017-10-19 10:28 | NUR ---
TORADOL REASSESSMENT Per patient Toradol was effective in lowering body aches 3/10.
[2017-10-19 12:00] VITALS: BP 117/68
[2017-10-19] MEDS: ACETAMINOPHEN 325 MG TABLET PO SCH ×2 (14:17→20:48)
[2017-10-19 16:00] VITALS: BP 123/60
[2017-10-19] MEDS ORDERED: IBUP-1957 PO (16:32)
[2017-10-19] MEDS ORDERED: CLON0.1T14 PO (16:32)
[2017-10-19] MEDS ORDERED: BACL20TA PO (16:32)
[2017-10-19] MEDS ORDERED: LIDO30AD10 TD (16:32)
[2017-10-19] MEDS ORDERED: ACET325T53 PO (16:32)
[2017-10-19] MEDS ORDERED: HYDR-3895 PO (16:32)
[2017-10-19] MEDS ORDERED: DICY20TA28 PO (16:32)
[2017-10-19] MEDS ORDERED: GABA-534 PO (16:32)
--- NOTE | 2017-10-19 19:07 | NUR ---
END OF SHIFT NOTE Gave report to night nurse, 37 year old female patient remains A/O x4. Pt completed her 5 day Phenobarbital taper and 5 day Subutex taper and is tolerated well. Pt encouraged to attend groups and activities. Pt seen socializing with peers. Most recent COWS is 8 and CIWA is 9. Patient presented with anxiety, agitation, body aches and received scheduled medications along with PRN Toradol noted to be effective. Patient set for discharge in AM. All pertinent information provided to night nurse. Pt is stable at this time, night nurse will continue to monitor.
--- NOTE | 2017-10-19 19:15 | NUR ---
Start of Shift Note: Endorsement received from day shift nurse. Receive patient in bed watching TV. Patient remains alert & oriented x4. She c/o of sweating, chills, 5/10 myalgia & anxiety. Patient completed her 5-day Phenobarbital & 5-day Subutex taper and is scheduled to be discharge tomorrow. Pt verbalized readiness to be discharge Last COWS 8 CIWA 9. Pt received Toradol for pain during day shift and was effective per report. Encourage pt to increase fluid intake for hydration. Educated patient of current plan of care for the night and medication regimen. Safety precaution in place. Bed locked in lowest position. Both side rails up. Call light within pt's reach. Will continue to monitor patient.
[2017-10-19 20:00] VITALS: BP 127/78
[2017-10-19] MEDS: CLONIDINE HCL 0.2 MG TABLET PO SCH (20:47)
[2017-10-19] MEDS: LAMOTRIGINE 200 MG TABLET PO SCH (20:47)
[2017-10-19] MEDS: HYDROXYZINE PAMOATE 25 MG CAPSULE PO PRN (22:38)
--- NOTE | 2017-10-19 22:38 | NUR ---
PRN Vistaril & Remeron Patient complained that she can't sleep d/t her anxiety. Pt also requesting for sleeping medication. PRN Vistaril & Remeron administered as ordered. Will monitor for effectiveness of medication.
--- NOTE | 2017-10-19 23:38 | NUR ---
PRN Reassessment Patient asleep in bed and appears comfortable. PRN medication given effective. Safety measures in place. Will continue to monitor patient.
[2017-10-20] MEDS: THYROID 60 MG TABLET PO SCH (06:54)
[2017-10-20] MEDS: LEVOTHYROXINE 25MCG PO SCH (06:54)
[2017-10-20] MEDS: PANTOPRAZOLE SODIUM 40 MG TABLET.DR PO SCH (06:54)
--- NOTE | 2017-10-20 07:16 | NUR ---
End of Shift Note: Patient remain alert & oriented x4. Patient completed her Phenobarbital and Subutex taper and is scheduled to be discharge today. Patient remains stable and vitals noted WNL. Last COWS 6 CIWA 8. Pt received PRN Vistaril for anxiety & Remeron for sleep and were effective. Pt was able to sleep for a total of 7 hours. Fluid intake is 500 ml Voided 1x with no bowel movement noted. All needs attended & met. Safety measures in place. Will endorse pt to day shift nurse.
--- NOTE | 2017-10-20 07:40 | NUR ---
START OF SHIFT NOTE Received report from night nurse, patient completed her Phenobarbital and Subutex taper tolerated well. Per endorsement patient received PRN Vistaril, Remeron effective per night nurse, last CIWA -8, COWS-6, slept for 7 hours. Patient set for discharge today. Received patient anxious, agitated, restless, body aches. Patient due for schedule medications. All safety measures in place. Will cont to monitor.
[2017-10-20 08:00] VITALS: BP 138/89
[2017-10-20] MEDS: ACETAMINOPHEN 325 MG TABLET PO SCH (08:27)
[2017-10-20] MEDS: LIDOCAINE 5% PATCH TD SCH (08:27)
[2017-10-20] MEDS: CITALOPRAM 20 MG TABLET PO SCH (08:27)
[2017-10-20] MEDS: BACLOFEN 20 MG TABLET PO SCH (08:27)
[2017-10-20] MEDS: GABAPENTIN 300 MG CAPSULE PO SCH (08:27)
[2017-10-20] MEDS: DULOXETINE 60 MG CAPSULE.DR PO SCH (08:27)
[2017-10-20 08:28] VITALS: BP 138/89
[2017-10-20] MEDS: CLONIDINE HCL 0.1 MG TABLET PO SCH (08:28)
--- NOTE | 2017-10-20 09:03 | NUR ---
PRN MOTRIN Patient reported swelling on her bilateral hands and reported pain 4/10. PRN Motrin 800mg PO given as ordered. Will cont to monitor.
--- NOTE | 2017-10-20 09:38 | NUR ---
DISCHARGE NOTE Patient has been discharged from [facility] Patient is in Stable condition, VS WNL. Denies suicidal and homicidal ideations at this time. All documentation has been completed, paperwork signed and dated. Pt left with all of her belongings, medications and prescriptions. Patient reported Motrin was effective in lowering her pain 06/06. Pt has been discharged from [facility] on 10/20/17 at 0938. has been Notified.
== END 2017-10-20 09:38 | disposition other institution (70) | DRG 895 ==
LOC: SRC 11:52
PROVIDERS: ADMIT Internal Medicine; ATTEND Internal Medicine
PROC: HZ2ZZZZ Detoxification Services for Substance Abuse Treatment (ICD-10-PCS; principal; 2017-10-14)
PROC: HZ41ZZZ Group Counseling for Substance Abuse Treatment, Behavioral (ICD-10-PCS; 2017-10-15)
DX: F13.232 Sedative, hypnotic or anxiolytic dependence with withdrawal with perceptual disturbance (principal); E55.9 Vitamin D deficiency, unspecified; F11.23 Opioid dependence with withdrawal; M79.7 Fibromyalgia; G43.909 Migraine, unspecified, not intractable, without status migrainosus; F41.9 Anxiety disorder, unspecified; G47.00 Insomnia, unspecified; Z91.5 Personal history of self-harm; Z88.6 Allergy status to analgesic agent; Z88.2 Allergy status to sulfonamides; Z88.8 Allergy status to other drugs, medicaments and biological substances; Z90.49 Acquired absence of other specified parts of digestive tract; E89.0 Postprocedural hypothyroidism; Z81.1 Family history of alcohol abuse and dependence; Z80.1 Family history of malignant neoplasm of trachea, bronchus and lung; Z83.3 Family history of diabetes mellitus; Z82.49 Family history of ischemic heart disease and other diseases of the circulatory system; G89.29 Other chronic pain; Z79.899 Other long term (current) drug therapy; F31.9 Bipolar disorder, unspecified; D69.6 Thrombocytopenia, unspecified; M50.80 Other cervical disc disorders, unspecified cervical region; R73.9 Hyperglycemia, unspecified
CPT/HCPCS: 36415; 70030-TC; 80307; 80345; 82306; 82746; 83735; 84443; 84703; 85025; 86038; 86580; 86592; 86705; 86803; 87086; 87340; 87806; 93005; G0480; J1885; J8499